=== PATIENT | female | born 1940 | race Caucasian/White ===

== ENCOUNTER 2017-03-23 15:45 | Emergency (ER) | payer OTHER, MEDICARE ==
[~2017-03-23] VITALS: Ht 160 cm; Wt 64.4 kg
--- NOTE | 2017-03-23 17:35 | ED NECK/BACK PAIN COMPLAINT ---
History of Present Illness General Chief Complaint: Hip Injury Stated Complaint: RIGHT HIP PAIN, DIFFICULTY WALKING Source: patient Exam Limitations: no limitations Vital Signs & Intake/Output Vital Signs & Intake/Output ED Intake and Output 03/24 0000 03/23 1200 Intake Total 0 Output Total Balance 0 Intake, Oral 0 Patient 142 lb Weight Weight Reported by Patient Measurement Method Allergies Coded Allergies: shellfish derived (Severe, ANAPHYLAXIS 03/23/17) Iodinated Contrast Media - Oral and (ANAPHYLAXIS 03/23/17) Reconcile Medications Amlodipine Besylate 10 MG TABLET 1 TAB PO DAILY BP (Reported) Aspirin (Aspirin*) 81 MG TAB.CHEW 1 TAB PO DAILY HEART/BLOOD (Reported) Atorvastatin Calcium 20 MG TABLET 1 TAB PO DAILY CHOLESTEROL (Reported) Canagliflozin (Invokana) 300 MG TABLET 1 TAB PO DAILY DM (Reported) Carvedilol 6.25 MG TABLET 1 TAB PO BID HEART/BP (Reported) Cyanocobalamin (Vitamin B-12) (Cyanocobalamin Injection) 1,000 MCG/ML VIAL 1 ML IM Q2W SUPPLEMENT (Reported) Glipizide (Glipizide ER) 10 MG TAB.ER.24 1 TAB PO DAILY DM (Reported) Levothyroxine Sodium (Synthroid) (Unknown Strength) TABLET (Unknown Dose) PO AD THYROID (Reported) Linagliptin (Tradjenta) 5 MG TABLET 1 TAB PO DAILY DM (Reported) Lisinopril/Hydrochlorothiazide (Lisinopril-Hctz 20-12.5 MG Tab) 20 MG-12.5 MG TABLET 1 TAB PO DAILY BP (Reported) Metformin HCl (Metformin HCl ER) 500 MG TAB.ER.24H 1 TAB PO DAILY DM ( Reported) Omeprazole 20 MG CAPSULE. 1 CAP PO DAILY GI (Reported) Triage Note: PT TO ED FOR L HIP PAIN, PT HAS CHRONIC L HIP PAIN THAT IS NOW WORSE AND HAS TRAVELED TO LOW BACK AND INTO R HIP. DENIES NUMBNESS/TINGLING. DENIES BOWEL OR BLADDER INCONTINENCE. PT REPORTS DIFFICULTY WALKING MORE THAN USUAL, BUT IS AMBULATORY TO TRIAGE. PT TOOK ADVIL AT [facility] TODAY WITHOUT RELIEF. Triage Nurses Notes Reviewed? yes Onset: Abrupt Duration: week(s):, constant, continues in ED Timing: recent history Quality/Severity: moderate, severe Location: lumbar spine Radiation: none Loss of Consciousness: no loss of consciousness HPI: 76-year-old female comes into emergency room for further evaluation of chronic left hip pain as well as low back pain. Patient reports that she has chronic issues with her left hip. She reports that she has had some associated low back pain for the last couple weeks. Hurts to move certain ways. Denies any chest pain abdominal pain shortness of breath. Denies any recent falls or trauma that she can recall. Denies any other associated symptoms. Patient has not followed up with her doctor about it. (LARISA ESTRADA) Past History Travel History Traveled to [place] past 21 day No Medical History Any Pertinent Medical History? 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 No (LARISA ESTRADA) Review of Systems Review of Systems Constitutional: Reports: no symptoms. Eyes: Reports: no symptoms. Ears, Nose, Throat, Mouth: Reports: no symptoms. Respiratory: Reports: no symptoms. Cardiovascular: Reports: no symptoms. Gastrointestinal/Abdominal: Reports: no symptoms. Musculoskeletal: Reports: see HPI. Skin: Reports: no symptoms. Neurological/Psychological: Reports: no symptoms. All Other Systems: Reviewed and Negative (LARISA ESTRADA) Physical Exam Physical Exam General Appearance: well developed/nourished, mild distress Head: atraumatic Eyes: Bilateral: normal appearance. Ears, Nose, Throat, Mouth: hearing grossly normal, moist mucous membrane Neck: normal inspection, full range of motion Respiratory: normal breath sounds, no respiratory distress Cardiovascular: regular rate/rhythm Back: right-sided paraspinal tenderness Extremities: normal range of motion Motor: Deficit L4 Right: No Deficit L4 Left: No Deficit L5 Right: No Deficit L5 Left: No Deficit S1 Right: No Deficit S1 Right: No Neurologic/Psych: awake, alert, oriented x 3, normal mood/affect Skin: intact, normal color, warm/dry (LARISA ESTRADA) Progress Differential Diagnosis: cauda equina syn, herniated disc, myofascial strain, pyelo/UTI, sciatica, spinal cord inj, ureterolithiasis Plan of Care: Orders Procedure Date/time Status XRY-LUMBOSACRAL SPINE 4 VIEWS 03/23 1735 Active Diagnostic Imaging: Viewed by Me: Radiology Read. Discussed w/RAD: Radiology Read. Radiology Impression: SERVICE DATE: 03/23/17-1734 EXAM TYPE: RAD - XRY- LUMBOSACRAL SPINE 4 VIEWS EXAMINATION: LUMBOSACRAL SPINE 3 VIEWS CLINICAL INFORMATION: Low back pain. COMPARISON: None. TECHNIQUE: AP, lateral, spot lateral views of the lumbosacral spine are provided. FINDINGS: There are no fractures. The lumbar vertebrae are in normal alignment. The patient is status post laminectomy. There is moderate S-shaped curvature to the lumbar spine. There is multilevel disc height loss throughout the lumbar spine. There is anterior osteophyte formation and slight increased sclerosis within the facet joints of the lumbar spine. IMPRESSION: Moderate degenerative change to the lumbar spine without evidence of acute injury. DICTATED BY: JEYSON MCNEAL MD DATE/TIME DICTATED:03/23/171814 MOLD FILLER AND DRAINER:ROZ DATE/TIME TRANSCRIBED:03/23/171814 Comments: 03/23/2017 7:57:18 PM Patient clinically looks well. Pain is consistent with muscular pain. Reproducible on exam. Worse with range of motion. No signs of acute trauma. Patient understands and agrees with plan of care. Patient declined any pain medication to go home with. Moist heat. Physical therapy follow-up. Follow-up with dr amos. (LARISA ESTRADA) Departure Departure Disposition: HOME OR SELF CARE Condition: Stable Clinical Impression Primary Impression: Strain of muscle, fascia and tendon of lower back, initial encounter Referrals: FLORENCIA CORONEL,ILSA Clayton (PCP/Family) Additional Instructions: Take Tylenol for pain. Follow-up with your primary care doctor. Return if any concerns worsening symptoms. Departure Forms: Customer Survey General Discharge Information (LARISA ESTRADA) PA/MACHINED PARTS METAL SPRAYER Co-Sign Statement Statement: ED Attending supervision documentation- [] I saw and evaluated the patient. I have also reviewed all the pertinent lab results and diagnostic results. I agree with the findings and the plan of care as documented in the PA's/MACHINED PARTS METAL SPRAYER's documentation. [X] I have reviewed the ED Record and agree with the PA's/MACHINED PARTS METAL SPRAYER's documentation. [] Additions or exceptions (if any) to the PAs/MACHINED PARTS METAL SPRAYER's note and plan are summarized below: [] (VALENTÍN CORONEL,JULIA Welsh)
[2017-03-23] MEDS ORDERED: AMLODIPINE BESY10 M1 PO (18:18)
[2017-03-23] MEDS ORDERED: ASPIRIN81 M4 PO (18:18)
[2017-03-23] MEDS ORDERED: INVOKANA300 M1 PO (18:19)
[2017-03-23] MEDS ORDERED: CARVEDILOL6.25 M1 PO (18:19)
[2017-03-23] MEDS ORDERED: ATORVASTATIN CA20 M1 PO (18:19)
[2017-03-23] MEDS ORDERED: CYANOCOBAL1000 MCG/2 IM (18:20)
[2017-03-23] MEDS ORDERED: GLIPIZIDE ER10 M1 PO (18:20)
--- NOTE | 2017-03-23 18:20 | RADIOLOGY REPORT ---
EXAMINATION: LUMBOSACRAL SPINE 3 VIEWS CLINICAL INFORMATION: Low back pain. COMPARISON: None. TECHNIQUE: AP, lateral, spot lateral views of the lumbosacral spine are provided. FINDINGS: There are no fractures. The lumbar vertebrae are in normal alignment. The patient is status post laminectomy. There is moderate S-shaped curvature to the lumbar spine. There is multilevel disc height loss throughout the lumbar spine. There is anterior osteophyte formation and slight increased sclerosis within the facet joints of the lumbar spine. IMPRESSION: Moderate degenerative change to the lumbar spine without evidence of acute injury.
[2017-03-23] MEDS ORDERED: OMEPRAZOLE20 M2 PO (18:21)
[2017-03-23] MEDS ORDERED: LISINOPRIL-HCT1 EACH PO (18:21)
[2017-03-23] MEDS ORDERED: METFORMIN HCL500 M4 PO (18:21)
[2017-03-23] MEDS ORDERED: SYNTHROID112 MCG PO (18:22)
[2017-03-23] MEDS ORDERED: TRADJENTA5 M1 PO (18:22)
[2017-03-23 18:45] VITALS: BP 118/70
== END 2017-03-23 18:46 ==
LOC: ERH 15:45
DX: S39.012A Strain of muscle, fascia and tendon of lower back, initial encounter (principal)
CPT/HCPCS: 72110

== ENCOUNTER 2017-03-31 04:58 | Emergency (ER) | payer OTHER, MEDICARE ==
[~2017-03-31] VITALS: Ht 157.5 cm; Wt 66.2 kg
[~2017-03-31 04:58] MED LIST: AMLODIPINE BESY10 M1 PO; ASPIRIN81 M4 PO; ATORVASTATIN CA20 M1 PO; CARVEDILOL6.25 M1 PO; CYANOCOBAL1000 MCG/2 IM; GLIPIZIDE ER10 M1 PO; INVOKANA300 M1 PO; LISINOPRIL-HCT1 EACH PO; METFORMIN HCL500 M4 PO; OMEPRAZOLE20 M2 PO; SYNTHROID112 MCG PO; TRADJENTA5 M1 PO
--- NOTE | 2017-03-31 05:02 | ED UPPER/LOWER EXTREMITY COMPL ---
History of Present Illness General Chief Complaint: Upper Extremity Problem Stated Complaint: "per ems CHRONIC BACK PAIN" Source: patient, EMS Exam Limitations: no limitations Vital Signs & Intake/Output Vital Signs & Intake/Output Vital Signs Date Time Temp Pulse Resp B/P B/P Pulse O2 O2 Flow FiO2 Mean Ox Delivery Rate 03/31 0505 96.8 70 18 162/60 95 Room Air ED Intake and Output 04/01 0000 03/31 1200 Intake Total 0 Output Total Balance 0 Intake, Oral 0 Patient 146 lb Weight Weight Reported by Patient Measurement Method Allergies Coded Allergies: shellfish derived (Severe, ANAPHYLAXIS 03/23/17) Iodinated Contrast Media - Oral and (ANAPHYLAXIS 03/23/17) Reconcile Medications Amlodipine Besylate 10 MG TABLET 1 TAB PO DAILY BP (Reported) Aspirin (Aspirin*) 81 MG TAB.CHEW 1 TAB PO DAILY HEART/BLOOD (Reported) Atorvastatin Calcium 20 MG TABLET 1 TAB PO DAILY CHOLESTEROL (Reported) Canagliflozin (Invokana) 300 MG TABLET 1 TAB PO DAILY DM (Reported) Carvedilol 6.25 MG TABLET 1 TAB PO BID HEART/BP (Reported) Cyanocobalamin (Vitamin B-12) (Cyanocobalamin Injection) 1,000 MCG/ML VIAL 1 ML IM Q2W SUPPLEMENT (Reported) Glipizide (Glipizide ER) 10 MG TAB.ER.24 1 TAB PO DAILY DM (Reported) Levothyroxine Sodium (Synthroid) (Unknown Strength) TABLET (Unknown Dose) PO AD THYROID (Reported) Linagliptin (Tradjenta) 5 MG TABLET 1 TAB PO DAILY DM (Reported) Lisinopril/Hydrochlorothiazide (Lisinopril-Hctz 20-12.5 MG Tab) 20 MG-12.5 MG TABLET 1 TAB PO DAILY BP (Reported) Metformin HCl (Metformin HCl ER) 500 MG TAB.ER.24H 1 TAB PO DAILY DM ( Reported) Omeprazole 20 MG CAPSULE.DR 1 CAP PO DAILY GI (Reported) Oxycodone HCl/Acetaminophen (Percocet 5-325 MG Tablet) 5 MG-325 MG TABLET 1 TAB PO 4XDP PRN PAIN TEN...[id number] Triage Nurses Notes Reviewed? yes Onset: Gradual Duration: day(s):, waxing and waning Timing: recent history Severity: moderate Pain/Injury Location: Right: Other (right lower back). HPI: 76 yo woman with more than 1 week history of lower back pain, radiating to right buttock. She was seen previously, had LS xray notable for DJD. She saw her orthopedist last week. She notes that the tramadol she has been taking has not been working. She is able to ambulate, has no fevers, chills, weakness. She is otherwise well. Past History Travel History Traveled to [place] past 21 day No Medical History Any Pertinent Medical History? 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 No Review of Systems Review of Systems Constitutional: Reports: no symptoms. EENTM: Reports: no symptoms. Respiratory: Reports: no symptoms. Cardiovascular: Reports: no symptoms. Gastrointestinal/Abdominal: Reports: no symptoms. Genitourinary: Reports: no symptoms. Musculoskeletal: Reports: no symptoms. Skin: Reports: no symptoms. Neurological/Psychological: Reports: no symptoms. Hematologic/Endocrine: Reports: no symptoms. Immunological: Reports: no symptoms. All Other Systems: Reviewed and Negative Physical Exam Physical Exam General Appearance: well developed/nourished, mild distress Head: atraumatic Eyes: Bilateral: normal appearance. Ears, Nose, Throat: normal pharynx, normal ENT inspection, hearing grossly normal Neck: normal inspection, supple Cardiovascular/Respiratory: regular rate/rhythm Back: normal inspection, muscle spasm, no vertebral tenderness, diffuse muscle tenderness at right lower lumbar region and into right buttock. Negative straight leg sign bilaterally. Hips have full ROM without significant discomfort. Skin: intact, normal color, warm/dry Lymphatic: no anterior cervical radhika Progress Differential Diagnosis: djd vs chronic pain vs other. Plan of Care: Current Medications Sig/Cristina Start time Last Medication Dose Stop Time Status Admin Hydromorphone HCl 1 MG ONCE ONE 03/31 515 UNVr (Dilaudid) 03/31 516 Ketorolac 60 MG ONCE ONE 03/31 515 UNVr Tromethamine 03/31 516 (Toradol) Diagnostic Imaging: Viewed by Me: Radiology Read. Discussed w/RAD: Radiology Read. Radiology Impression: LUMBAR-SACRAL XRAY... MODERATE DJD. Comments: PATIENT: DANIEL METZ PRESENT AGE: 76 PATIENT ACCOUNT NO: [id number] : 39 LOCATION: [facility] ORDERING PHYSICIAN: LARISA ULRICH SERVICE DATE: 03/23/17 EXAM TYPE: RAD - XRY-LUMBOSACRAL SPINE 4 VIEWS EXAMINATION: LUMBOSACRAL SPINE 3 VIEWS CLINICAL INFORMATION: Low back pain. COMPARISON: None. TECHNIQUE: AP, lateral, spot lateral views of the lumbosacral spine are provided. FINDINGS: There are no fractures. The lumbar vertebrae are in normal alignment. The patient is status post laminectomy. There is moderate S-shaped curvature to the lumbar spine. There is multilevel disc height loss throughout the lumbar spine. There is anterior osteophyte formation and slight increased sclerosis within the facet joints of the lumbar spine. IMPRESSION: Moderate degenerative change to the lumbar spine without evidence of acute injury. DICTATED BY: JEYSON MCNEAL MD DATE/TIME DICTATED:03/23/171814 APPEALS ASSISTANT:ROZ DATE/TIME TRANSCRIBED:03/23/171814 CONFIDENTIAL, DO NOT COPY WITHOUT APPROPRIATE AUTHORIZATION. <Electronically signed in Other Vendor System> SIGNED BY: JEYSON MCNEAL MD 03/23/17 182 Departure Departure Disposition: HOME OR SELF CARE Condition: Stable Clinical Impression Primary Impression: Back pain Referrals: FLORENCIA CORONEL,ILSA Clayton (PCP/Family) Departure Forms: Customer Survey General Discharge Information Prescriptions: Current Visit Scripts Oxycodone HCl/Acetaminophen (Percocet 5-325 MG Tablet) 1 TAB PO 4XDP PRN PAIN #10 TAB TEN...[id number] Comments discussed at length with patient... she would like medicine stronger than tramadol. She would like percocet. Given failure of tramadol, will give small rx for percocet and advised close follow up with her orthopedist.
[2017-03-31] MEDS ORDERED: PERCOCET 5-3251 EACH PO (05:04)
[2017-03-31 05:05] VITALS: BP 162/60
== END 2017-03-31 05:29 ==
LOC: ERH 04:58
DX: M54.5 Low back pain (principal)
CPT/HCPCS: 96372; J1885

== ENCOUNTER 2018-02-14 14:50 | Emergency (ER) | payer OTHER, MEDICARE ==
[~2018-02-14] VITALS: Ht 157.5 cm; Wt 68.0 kg
[~2018-02-14 14:50] MED LIST changes: +PERCOCET 5-3251 EACH PO
--- NOTE | 2018-02-14 15:53 | RADIOLOGY REPORT ---
EXAMINATION: XR ELBOW, RIGHT CLINICAL INFORMATION: Trauma, pain COMPARISON: None TECHNIQUE: AP, lateral, and oblique views of the right elbow. FINDINGS: There is no acute fracture or dislocation of the right elbow. The anterior fat pad is preserved. No large joint effusion. No radiodense foreign body. IMPRESSION: No acute fracture or dislocation of the right elbow.
--- NOTE | 2018-02-14 16:39 | RADIOLOGY REPORT ---
EXAMINATION: XR SHOULDER, RIGHT XR WRIST, RIGHT CLINICAL INFORMATION: History of fall. COMPARISON: None TECHNIQUE: 3 views of the right shoulder and 4 views of the right wrist. FINDINGS: RIGHT SHOULDER: Mild diffuse osteopenia is noted. The bony alignment is intact. The cortices are intact. Mild osteoarthrosis is noted at the right acromioclavicular joint. No superimposed acute fracture or dislocation or any soft tissue abnormality identified. RIGHT WRIST: Mild diffuse osteopenia is noted. Moderate osteoarthrosis is noted at the 1st carpometacarpal joint. The scaphoid is intact. There is a small bony projection identified overlying the lunate on the lateral projection, a possibility of subtle triquetral fracture may have similar appearance. IMPRESSION: 1. Mild diffuse osteopenia of all the visualized bones. 2. Mild osteoarthrosis at the right acromioclavicular joint. 3. No radiographic evidence of any acute fracture and/or dislocation or soft tissue abnormalities of the right shoulder. 4. Small bony projection identified overlying the proximal carpal row along the dorsal aspect, seen only on the lateral projection, may represent a small triquetral fracture. 5. Moderate osteoarthrosis at the 1st carpometacarpal joint.
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
--- NOTE | 2018-02-14 18:40 | RADIOLOGY REPORT ---
EXAMINATION: XR CHEST CLINICAL INFORMATION: Fall, pain COMPARISON: None TECHNIQUE: 2 views of the chest were obtained. FINDINGS: The cardiac size and mediastinal silhouette are normal. The pulmonary vascularity is within normal limits. There is indistinct opacity at the left lung base, adjacent to the costophrenic angle and seen on the PA view. This could represent atelectasis. Evaluation for adjacent rib fracture is limited. No sizable pleural effusion. No pneumothorax. Mild anterior endplate osteophytosis of multiple thoracic spine noted. IMPRESSION: Opacity at the left lateral costophrenic angle which could represent atelectasis.
--- NOTE | 2018-02-14 18:53 | CT SCAN REPORT ---
EXAMINATION: CT HEAD WITHOUT CONTRAST CT CERVICAL SPINE WITHOUT CONTRAST CLINICAL INFORMATION: Fall. Pain. COMPARISON: None. TECHNIQUE: Imaging was performed from the skull base to vertex without intravenous administration of contrast. In addition, helical noncontrast CT imaging was acquired through the cervical spine and source images were reviewed along with axial reconstructions and sagittal and coronal MPRs. DLP: 958.29 mGy-cm FINDINGS: HEAD: No intracranial mass, hemorrhage, or midline shift is visualized. There is atrophy with prominence of the ventricles and the sulci and hypodensity of the periventricular white matter due to chronic small vessel ischemic disease. There is vascular calcifications of the internal carotid arteries bilaterally. No extra-axial collections are identified. The paranasal sinuses and mastoid air cells are well aerated. CERVICAL SPINE: There is no evidence of acute cervical spine fracture. Vertebral bodies remain normal in height. Cervical vertebrae have normal alignment. There is multilevel degenerative spondylosis of the cervical spine with disc height narrowing and endplate spurs and facet joint arthrosis. There is significant disc height narrowing at C2-C3 and C3-C4 with prominent endplate spurs at these disc levels. There is significant disc height narrowing also at C4-C5 with smaller endplate spurs. There is vascular calcification of the transverse ligament posterior to the dens without bone erosions. There is vascular wall calcification of the carotid bifurcations and of the aorta at the aortic arch. Limited assessment of the lung apices is unremarkable. IMPRESSION: 1. No acute intracranial pathology. 2. No CT evidence of acute cervical spine fracture or traumatic subluxation
[2018-02-14 20:14] VITALS: BP 158/74
== END 2018-02-14 20:16 ==
LOC: ERH 14:50
DX: M25.531 Pain in right wrist (principal)
CPT/HCPCS: 71046; 73030-RT; 73080-RT; 73110-RT; 90471; 90714